=== PATIENT | female | born 1985 | race Caucasian/White ===

== ENCOUNTER 2018-01-16 21:26 | Observation (INO) | payer MEDICAID ==
[~2018-01-16] VITALS: Ht 157.5 cm; Wt 87.1 kg
[2018-01-16] MEDS ORDERED: PNV1TABL76 MT (21:55)
== END 2018-01-16 23:33 | disposition home or self-care (01) ==
LOC: L&D 21:26
PROVIDERS: ADMIT Obstetrics & Gynecology; ATTEND Obstetrics & Gynecology
DX: O62.9 Abnormality of forces of labor, unspecified (principal); Z3A.37 37 weeks gestation of pregnancy
CPT/HCPCS: 99281; G0378

== ENCOUNTER 2019-08-29 17:03 | Emergency (ER) | payer MEDICAID ==
[~2019-08-29] VITALS: Ht 152.4 cm; Wt 71.0 kg
[~2019-08-29 17:03] MED LIST: PNV1TABL76 MT
[2019-08-29 17:06] VITALS: BP 108/68
== END 2019-08-29 21:38 | disposition left against medical advice (07) ==
LOC: ER 19:59
DX: R06.02 Shortness of breath (principal); Z53.21 Procedure and treatment not carried out due to patient leaving prior to being seen by health care provider

== ENCOUNTER 2019-09-22 08:44 | Emergency (ER) | payer MEDICAID ==
[~2019-09-22] VITALS: Ht 157.5 cm; Wt 77.0 kg
[2019-09-22] MEDS ORDERED: ACETAMINOPHEN 325MG TABLET PO ONE (09:15)
[2019-09-22 10:35] LABS: CLARITY URINE CLEAR (CLEAR); COLOR URINE YELLOW (YELLOW); KETONES URINE NEGATIVE (NEGATIVE); LEUKOCYTE ESTERASE URINE NEGATIVE (NEGATIVE); NITRITE URINE NEGATIVE (NEGATIVE); OCCULT BLOOD URINE 1+ (NEGATIVE); PH URINE 6.5 (4.5-8.0); PROTEIN URINE NEGATIVE (NEGATIVE); SPECIFIC GRAVITY URINE 1.013 (1.005-1.030); UROBILINOGEN URINE 0.2 E.U./dL (0.2-1.0)
[2019-09-22 12:04] VITALS: BP 106/69
== END 2019-09-22 12:04 | disposition home or self-care (01) ==
LOC: ER 08:44
DX: O26.891 Other specified pregnancy related conditions, first trimester (principal); R33.9 Retention of urine, unspecified; R10.2 Pelvic and perineal pain; Z3A.13 13 weeks gestation of pregnancy
CPT/HCPCS: 51702; 81003; 81025; 99284

== ENCOUNTER 2019-09-24 23:07 | Emergency (ER) | payer MEDICAID ==
[~2019-09-24] VITALS: Ht 157.5 cm; Wt 78.0 kg
[2019-09-25] MEDS ORDERED: ACETAMINOPHEN 325MG TABLET PO STA (02:10)
[2019-09-25 02:49] LABS: CLARITY URINE CLOUDY (CLEAR); COLOR URINE YELLOW (YELLOW); KETONES URINE NEGATIVE (NEGATIVE); LEUKOCYTE ESTERASE URINE TRACE (NEGATIVE); NITRITE URINE NEGATIVE (NEGATIVE); OCCULT BLOOD URINE 3+ (NEGATIVE); PH URINE 6.5 (4.5-8.0); PROTEIN URINE 1+ (NEGATIVE); SPECIFIC GRAVITY URINE 1.018 (1.005-1.030); UROBILINOGEN URINE 0.2 E.U./dL (0.2-1.0)
[2019-09-25 07:27] VITALS: BP 121/78
== END 2019-09-25 07:27 | disposition home or self-care (01) ==
LOC: ER 23:07
DX: O26.891 Other specified pregnancy related conditions, first trimester (principal); R31.9 Hematuria, unspecified; J45.909 Unspecified asthma, uncomplicated; O23.41 Unspecified infection of urinary tract in pregnancy, first trimester; Z3A.13 13 weeks gestation of pregnancy
CPT/HCPCS: 76770; 81003; 99284

== ENCOUNTER 2019-10-29 16:47 | Emergency (ER) | payer MEDICAID ==
[~2019-10-29] VITALS: Ht 157.5 cm; Wt 83.0 kg
[2019-10-29] MEDS ORDERED: IPRATROPIUM BROMIDE (0.02%) 0.5MG/2.5ML NEB HHN STA (21:40)
[2019-10-29] MEDS ORDERED: ALBUTEROL (0.083%) 2.5MG/3ML NEB HHN STA (21:40)
[2019-10-29] MEDS ORDERED: METHYLPREDNISOLONE SOD SUCC 125 MG/2 ML VIAL IV STA (21:40)
[2019-10-29 21:58] LABS: HEMATOCRIT. 39.9 % (36.0-48.0); HEMOGLOBIN. 13.6 g/dL (12.0-16.0); LYMPHOCYTES % 25.4 % (20.0-50.0); MEAN CORPUSCULAR HEMOGLOBIN 28.7 pg (28.0-32.0); MEAN PLATELET VOLUME 7.7 fl (7.4-10.4); MONOCYTES % 6.4 % (2.0-8.0); NEUTROPHILS % 66.2 % (40.0-76.0); PLATELET 204 x1000/uL (130-400); RED BLOOD CELL COUNT 4.74 mill/uL (4.2-5.4); RED CELL DISTRIBUTION WIDTH 13.1 % (11.6-14.6)
[2019-10-29 22:01] LABS: CLARITY URINE TURBID (CLEAR); COLOR URINE YELLOW (YELLOW); KETONES URINE NEGATIVE (NEGATIVE); LEUKOCYTE ESTERASE URINE NEGATIVE (NEGATIVE); NITRITE URINE NEGATIVE (NEGATIVE); OCCULT BLOOD URINE NEGATIVE (NEGATIVE); PH URINE 8.5 (4.5-8.0); PROTEIN URINE NEGATIVE (NEGATIVE); SPECIFIC GRAVITY URINE 1.014 (1.005-1.030); UROBILINOGEN URINE 0.2 E.U./dL (0.2-1.0)
[2019-10-29 22:04] LABS: CHLORIDE 110 mEq/L (98-107)
[2019-10-29 22:15] LABS: B-HCG QUANTITATIVE 62 mIU/mL (<3)
[2019-10-30 00:31] VITALS: BP 145/75
== END 2019-10-30 00:38 | disposition home or self-care (01) ==
LOC: ER 16:47
DX: O36.4XX0 Maternal care for intrauterine death, not applicable or unspecified (principal); O46.91 Antepartum hemorrhage, unspecified, first trimester; J45.909 Unspecified asthma, uncomplicated; Z3A.13 13 weeks gestation of pregnancy
CPT/HCPCS: 36415; 71045; 76801; 80053; 81003; 81025; 84702; 85025; 86850; 86900; 86901; 94640; 96374; 99284; J2930; J7611; Z7610

== ENCOUNTER 2019-11-03 08:59 | Day surgery (SDC) | payer MEDICAID ==
[~2019-11-03] VITALS: Ht 157.5 cm; Wt 82.0 kg
[2019-11-03 09:55] LABS: BASOPHILS % 0.4 % (0.0-2.0); EOSINOPHILS % 0.1 % (0.0-5.0); HEMATOCRIT. 40.8 % (36.0-48.0); LYMPHOCYTES % 11.8 % (20.0-50.0); MEAN CORPUSCULAR HEMOGLOBIN 29.1 pg (28.0-32.0); MEAN CORPUSCULAR VOLUME 85.2 fL (81.0-99.0); MEAN PLATELET VOLUME 7.8 fl (7.4-10.4); MONOCYTES % 5.9 % (2.0-8.0); NEUTROPHILS % 81.8 % (40.0-76.0); PLATELET 220 x1000/uL (130-400); RED BLOOD CELL COUNT 4.79 mill/uL (4.2-5.4); RED CELL DISTRIBUTION WIDTH 13.2 % (11.6-14.6)
[2019-11-03 09:57] LABS: CHLORIDE 108 mEq/L (98-107)
[2019-11-03 10:08] LABS: B-HCG QUANTITATIVE 37 mIU/mL (<3)
[2019-11-03] MEDS ORDERED: IBUPROFEN 600MG TABLET PO ONE (11:00)
[2019-11-03 11:05] VITALS: BP 126/70
[2019-11-03] MEDS ORDERED: ALBUTEROL 90MCG/PUFF 17GM INHALER INH ONE (12:05)
[2019-11-03] MEDS ORDERED: PROPOFOL 200MG/20ML VIAL IV ONE (12:14)
[2019-11-03] MEDS ORDERED: MIDAZOLAM HCL 2 MG/2 ML VIAL ONE (12:15)
[2019-11-03] MEDS ORDERED: FENTANYL CITRATE/PF 50MCG/ML 2ML VIAL ONE (12:15)
[2019-11-03] MEDS ORDERED: HYDROCORTISONE SOD SUCCINATE 100 MG/2 ML VIAL ONE (12:32)
[2019-11-03] MEDS ORDERED: TERBUTALINE SULFATE 1MG/ML VIAL ONE (12:34)
[2019-11-03] MEDS ORDERED: ONDANSETRON HCL 4MG/2ML INJ ONE (12:45)
[2019-11-03] MEDS ORDERED: HYDROMORPHONE HCL/PF 2MG/ML CPJ IV PRN (13:00)
[2019-11-03] MEDS ORDERED: RHO(D) IMMUNE GLOBULIN 300 MCG/SYR IM NR (13:00)
[2019-11-03] MEDS ORDERED: ACETAMINOPHEN 325MG TABLET PO PRN (13:00)
== END 2019-11-03 16:15 | disposition home or self-care (01) ==
LOC: ER 08:59 → OR 11:30 → ENRESERV 11:54 → CANRESERV 11:54 → ER 11:54 → OR 16:15 → CANBEDREQ 11-04 03:31
PROVIDERS: ATTEND Obstetrics & Gynecology
DX: O03.4 Incomplete spontaneous abortion without complication (principal); N93.9 Abnormal uterine and vaginal bleeding, unspecified; J45.909 Unspecified asthma, uncomplicated; Z83.3 Family history of diabetes mellitus; Z79.899 Other long term (current) drug therapy
CPT/HCPCS: 36415; 59812; 76801; 80053; 84702; 85025; 86850; 86900; 86901; 88305; J1720; J2250; J2405; J2704; J3010; J3105

== ENCOUNTER 2022-10-04 06:53 | Emergency (ER) | payer MEDICAID ==
[~2022-10-04] VITALS: Ht 157.5 cm; Wt 89.0 kg
[2022-10-04 07:03] VITALS: BP 149/83
[2022-10-04 09:01] LABS: HEMATOCRIT. 39.2 % (36.0-48.0); HEMOGLOBIN. 13.2 g/dL (12.0-16.0); MEAN CORPUSCULAR HEMOGLOBIN 28.8 pg (28.0-32.0); MEAN CORPUSCULAR VOLUME 85.2 fL (81.0-99.0); MEAN PLATELET VOLUME 7.1 fl (7.4-10.4); PLATELET 282 x1000/uL (130-400); RED CELL DISTRIBUTION WIDTH 14.1 % (11.6-14.6)
[2022-10-04 09:12] LABS: CHLORIDE 105 mEq/L (98-107)
[2022-10-04 09:36] LABS: B-HCG QUANTITATIVE 50421 mIU/mL (<3)
[2022-10-04 09:37] LABS: PLATELET ESTIMATE NORMAL
[2022-10-04 09:45] LABS: CLARITY URINE CLEAR (CLEAR); COLOR URINE YELLOW (YELLOW); KETONES URINE NEGATIVE (NEGATIVE); LEUKOCYTE ESTERASE URINE NEGATIVE (NEGATIVE); NITRITE URINE NEGATIVE (NEGATIVE); OCCULT BLOOD URINE NEGATIVE (NEGATIVE); PH URINE 6.5 (4.5-8.0); PROTEIN URINE NEGATIVE (NEGATIVE); SPECIFIC GRAVITY URINE 1.013 (1.005-1.030); UROBILINOGEN URINE 0.2 E.U./dL (0.2-1.0)
== END 2022-10-04 14:47 | disposition home or self-care (01) ==
LOC: ER 06:53
DX: O26.891 Other specified pregnancy related conditions, first trimester (principal); R10.2 Pelvic and perineal pain; R33.9 Retention of urine, unspecified; Z3A.12 12 weeks gestation of pregnancy
CPT/HCPCS: 36415; 51702; 76830; 76856; 80053; 81003; 84702; 85025; 86850; 86900; 99284